=== PATIENT | female | born 1985 | race Two or more races ===

== ENCOUNTER 2022-04-06 15:03 | Emergency (ER) | payer OTHER ==
[2022-04-06 15:21] VITALS: BP 129/75; PULSE 75; RESP 18; TEMP 98.6; BMI 52.0
[2022-04-06 16:51] LABS: EPI CELLS >36 /uL (0-25.1); HYALINE CASTS 2 /uL (0-3.1); URINE APPEARANCE CLOUDY; URINE BACTERIA 4162 /uL (0-1359); URINE BILIRUBIN NEGATIVE (NEGATIVE); URINE COLOR YELLOW; URINE GLUCOSE (UA) NEGATIVE (NEGATIVE); URINE KETONE NEGATIVE (NEGATIVE); URINE LEUK ESTERASE 1+ (NEGATIVE); URINE NITRITE NEGATIVE (NEGATIVE); URINE PROTEIN NEGATIVE (NEGATIVE); URINE RBC 24 /uL (0-23.9); URINE UROBILINOGEN 0.2 mg/dL (0.2-1.0); URINE WBC 177 /uL (0-25.8)
[2022-04-06 17:23] LABS: EOS % 7.4 % (0-4.5); HEMATOCRIT 37.4 % (32.4-45.2); HEMOGLOBIN 12.1 GM/dL (10.7-15.3); LYMPH % 44.7 % (8-40); MCH 23.6 pg (25.7-33.7); MCHC 32.3 g/dl (32.0-36.0); MEAN CELL VOLUME 73.2 fl (80-96); MEAN PLT VOLUME 9.4 fl (7.5-11.1); MONO % 6.5 % (3.8-10.2); NEUT % 39.4 % (42.8-82.8); PLATELET COUNT 256 10^3/uL (134-434); RBC 5.11 M/mm3 (3.60-5.2); RDW 17.4 % (11.6-15.6); WHITE BLOOD COUNT 4.4 K/mm3 (4.0-10.0)
[2022-04-06 17:23] LABS: HCG,QUALITATIVE URINE Negative
[2022-04-06 17:41] LABS: CALCIUM 9.4 mg/dL (8.5-10.1)
[2022-04-06 17:42] LABS: ALBUMIN 3.6 g/dl (3.4-5.0); BLOOD UREA NITROGEN 13.2 mg/dL (7-18)
[2022-04-06 17:45] LABS: CREATININE 0.7 mg/dL (0.55-1.3)
[2022-04-06 17:46] LABS: TOT PROT 7.8 g/dl (6.4-8.2)
[2022-04-06 17:47] LABS: BILIRUBIN,TOTAL 0.2 mg/dL (0.2-1)
== END 2022-04-06 18:45 | disposition home or self-care (01) ==
LOC: JERFT 15:03
DX: N39.0 Urinary tract infection, site not specified (principal)
CPT/HCPCS: 36415; 80053; 81003; 83690; 84703; 85025; 87086; 87186; 99283-25